=== PATIENT | male | born 1955 | race Caucasian/White ===

== ENCOUNTER 2023-01-15 06:59 | Day surgery (SDC) | payer OTHER ==
[2023-01-14 13:54] VITALS: BMI 24.0
[2023-01-15] MEDS ORDERED: PROPOFOL 60 ML ONE (07:50)
[2023-01-15 10:36] VITALS: RESP 16; TEMP 97.8
[2023-01-15 10:38] VITALS: BP 100/58; PULSE 86
== END 2023-01-15 10:40 | disposition home or self-care (01) ==
LOC: FASU-ENDO 06:59
PROVIDERS: ATTEND Internal Medicine Gastroenterology
PROC: 0DB68ZX Excision of Stomach, Via Natural or Artificial Opening Endoscopic, Diagnostic (ICD-10-PCS; 2023-01-15)
PROC: 0DB48ZX Excision of Esophagogastric Junction, Via Natural or Artificial Opening Endoscopic, Diagnostic (ICD-10-PCS; 2023-01-15)
PROC: 0DB98ZX Excision of Duodenum, Via Natural or Artificial Opening Endoscopic, Diagnostic (ICD-10-PCS; principal; 2023-01-15 09:42)
DX: K29.50 Unspecified chronic gastritis without bleeding (principal); R13.10 Dysphagia, unspecified
CPT/HCPCS: 82962; 88305-TC; 88342-TC

== ENCOUNTER 2025-04-13 08:12 | Day surgery (SDC) | payer OTHER ==
[2025-04-10 17:43] VITALS: BMI 22.3
[2025-04-13 10:30] VITALS: RESP 16; TEMP 97.5
[2025-04-13 10:50] VITALS: BP 103/68; PULSE 72
== END 2025-04-13 10:55 | disposition home or self-care (01) ==
LOC: FASU-ENDO 08:12
PROVIDERS: ATTEND Internal Medicine Gastroenterology
PROC: 0DBN8ZX Excision of Sigmoid Colon, Via Natural or Artificial Opening Endoscopic, Diagnostic (ICD-10-PCS; principal; 2025-04-13 09:53)
DX: Z12.11 Encounter for screening for malignant neoplasm of colon (principal); K63.5 Polyp of colon; K64.1 Second degree hemorrhoids; K64.9 Unspecified hemorrhoids; Z86.0100 Personal history of colon polyps, unspecified
CPT/HCPCS: 82962; 88305-TC